=== PATIENT | male | born 1980 | race Caucasian/White ===

== ENCOUNTER 2016-06-25 15:35 | Emergency (ER) | payer MEDICAID ==
[~2016-06-25 15:35] MED LIST: SULFAMETHOX/TMP 800/160 MG 1 TAB PO SCH
[2016-06-25 16:05] VITALS: TEMP 98.2; O2SAT 96
[2016-06-25] MEDS ORDERED: SULFAMETHOX/TMP 800/160 MG 1 TAB PO ONE (16:09)
--- NOTE | 2016-06-25 16:09 | EDPHY ---
H & P HPI/ROS: CHIEF COMPLAINT: Left great toe pain, possible spider bite HISTORY OF PRESENT ILLNESS: Patient complains of 10 days history of redness to the left great toe. He felt that a spider bit him at that time. Says that he is watched it in over 7 days and did change. Over the last few days he feels that it has swollen and 2 specific areas. It is only in mild to moderately painful. No fever or chills. No abdominal pain. No ecchymosis upward movement of the redness of the toe. He has no pain in the foot, leg or thigh. No other associated complaints or modifying factors. REVIEW OF SYSTEMS: Ten systems reviewed and are negative unless otherwise noted in the HPI EXAMINATION General Appearance: Alert, no distress Cardiovascular: Pulses normal throughout. Symmetric DP pulses at 2+. Brisk cap refill Neurological: A&O, sensory symmetric, strength symmetric Skin: Warm and dry, no rash. Erythema of the left great toe with mild fluctuance. Onychomycosis of several toes. Extremities: Range of motion is fully intact and symmetric in the feet and ankles. There is mild tenderness to palpation of the left great toe. Psychiatric: Mood and affect normal DIFFERENTIAL DIAGNOSES: Including but not limited to cellulitis, abscess, foreign body, gout MDM: 3:55 p.m. Left great toe redness and swelling. The appearance on 1st examination is more consistent with small abscess formation. I have applied a digital block to the toe. On examination there was 1 small area of fluctuance medially on the toe. I incised and drained a very small amount of purulence from this. The toe was minimally painful to palpation prior to the block. 4:13 p.m. There is maybe a scenario of gout in addition to the small area of purulence. The purulence has been drained without complication. I will treat him with indomethacin and Bactrim. He is to follow up here for wound recheck in 2 days, and nurse director of casework will assist with follow-up appointment on Monday. Return sooner for worsening redness, redness about the foot or ankle, worsening pain. He is comfortable this plan. PROCEDURE: Incision and Drainage Consent: Verbal Location: Left great toe Complexity: Supple Anesthesia: Digital block Procedure description: After good anesthesia, there is a small area of fluctuance that was incised and drained a scant amount of purulent fluid. Tolerated well without complication. Expressed: Scant purulence Wound care: Standard Follow-up: 2 days for wound check ED Precautions: Worsening pain. Erythema, edema, cyanosis, pallor, paresthesia or anesthesia. SUPERVISION: This patient was independently evaluated without direct examination by the attending physician. Case was discussed with attending physician. Source: Patient Exam Limitations: No limitations - Medical/Surgical History Hx Asthma: No Hx Chronic Respiratory Disease: No Hx Diabetes: No Hx Cardiac Disease: No Hx Renal Disease: No Hx Cirrhosis: No Hx Alcoholism: No Hx HIV/AIDS: No Hx Splenectomy or Spleen Trauma: No - Social History Smoking Status: Current every day smoker Constitutional: Initial Vital Signs Temperature (C) 98.2 F 06/25/16 15:47 Heart Rate 66 06/25/16 15:47 Respiratory Rate 16 06/25/16 15:47 Blood Pressure 139/104 H 06/25/16 15:47 O2 Sat (%) 96 06/25/16 15:47 O2 Delivery Mode Room Air Allergies/Adverse Reactions: Penicillins Allergy (Verified 11/04/15 20:37) Home Medications: Medication Instructions Recorded Indomethacin [INDOMETHACIN] 75 mg PO DAILY #10 capsule.er 06/25/16 Sulfamethox/Tmp 800/160 mg 2 tab PO BID 10 Days 06/25/16 [Bactrim Ds] Medical Decision Making - Data Points Medications Given: Discontinued Medications Colchicine (Colchicine) 0.6 mg PO DAILY MANISH Stop: 12/22/16 16:29 Last Admin: 06/25/16 16:35 Dose: 0.6 mg Trimethoprim/Sulfamethoxazole (Bactrim Ds) 2 ea PO EDNOW ONE PRN Reason: Protocol Stop: 06/25/16 16:10 Last Admin: 06/25/16 16:35 Dose: 2 ea Departure - Departure Disposition: Home, Routine, Self-Care Clinical Impression: Abscess of toe of left foot Condition: Good Instructions: Sulfamethoxazole/Trimethoprim (By mouth), Indomethacin (By mouth) , Abscess (ED), Abscess Follow-up (ED) Additional Instructions: Wound care as discussed. Antibiotics for the next 10 days. Follow up here or in clinic on Monday for a wound check. Return sooner for worsening signs of infection or pain. Referrals: NONE *PRIMARY CARE P,. [Unknown] - As per Instructions [facility],. [Clinic] - As per Instructions Prescriptions: Indomethacin [INDOMETHACIN] 75 mg PO DAILY #10 capsule.er Sulfamethox/Tmp 800/160 mg [Bactrim Ds] 2 tab PO BID 10 Days
[2016-06-25] MEDS ORDERED: IBUPROFEN 600 MG TAB PO ONE (16:15)
[2016-06-25] MEDS ORDERED: COLCHICINE 0.6 MG CAP/TAB PO SCH (16:30)
[2016-06-25] MEDS ORDERED: SULFAMETHOX/TMP 800/160 MG 1 TAB PO SCH (16:34)
[2016-06-25 16:49] VITALS: BP 134/100; PULSE 72; RESP 14
== END 2016-06-25 16:48 | disposition home or self-care (01) ==
PROC: 0J9R0ZZ Drainage of Left Foot Subcutaneous Tissue and Fascia, Open Approach (ICD-10-PCS; principal; 2016-06-25)
DX: L02.612 Cutaneous abscess of left foot (principal); F17.200 Nicotine dependence, unspecified, uncomplicated